=== PATIENT | female | born 1985 | race Caucasian/White ===

== ENCOUNTER 2023-12-21 09:12 | Emergency (ER) | payer MEDICARE, OTHER ==
--- NOTE | 2023-12-21 09:18 | ED Physician Documentation ---
PD HPI LOWER EXT INJURY - Stated complaint Stated Complaint: R ANKLE INJ - History obtained from History obtained from: Patient, EMS - History of Present Illness PD HPI LOW EXT INJURY LOCATION: Right, Ankle Type of injury: Twist (stepped down about 6 inch area and ankle twisted as landed. Pin with walking.) Timing - onset: Today Timing - details: Abrupt onset, Still present Worsened by: Moving, Palpating Associated symptoms: Swelling. No: Weakness, Numbness Similar symptoms before: Has not had sx before PD PAST MEDICAL HISTORY - Past Medical History Cardiovascular: None - Present Medications Home Medications: Ambulatory Orders Medication Instructions Recorded Confirmed No Known Home Medications 12/21/23 12/21/23 - Allergies Allergies/Adverse Reactions: Allergies Allergy/AdvReac Type Severity Reaction Status Date / Time No Known Drug Allergies Allergy Unverified 12/21/23 09:26 PD ED PE NORMAL - Vitals Vital signs reviewed: Yes - General General: Alert and oriented X 3, No acute distress, Well developed/nourished - Derm Derm: Normal color, Warm and dry - Extremities Extremities: Other (right ankle with lateral swelling and tenderness. Medially minimal to no tenderness. Achilles firm and intact. ) - Neuro Neuro: No motor deficit, No sensory deficit Results - Rads (name of study) right ankle Relevant Findings:: Prelim report reviewed, EMP independent interpretation of test (no fractures) PD Medical Decision Making - ED course Complexity details: considered differential (sprain vs fracturea and the xray showed no fracture. Will give aircast and crutches. ), d/w patient Departure - Departure Disposition: 01 Home, Self Care Clinical Impression: Ankle sprain Condition: Stable Record reviewed to determine appropriate education?: Yes Instructions: ED Sprain Ankle Comments: Your x-ray does not show any fractures. Obviously there is still injury to the ankle and some early bruising showing up would be suggestive of some torn ligame nts or muscle attachments. These can be several weeks and healing. Use the ankle brace to support the ankle for the duration of healing which may be even 3 to 4 weeks. Crutches initially for nonweightbearing or partial weightbearing as tolerated based on discomfort. Progress weightbearing as able. Continue with the splints though. You initially may prefer the splint on most of the time. As it starts getting feeling better you can have it off when rested and sleeping etc. Ice elevate and rested often today to help with swelling. Tylenol and/or ibuprofen regularly to help with pain. Follow-up with your primary care for recheck in about 1-1/2 weeks to see how well it is improving at that time and if the current treatment is adequate. Call for an appointment. Forms: PCP List Discharge Date/Time: 12/21/23 10:53
--- NOTE | 2023-12-21 09:54 | XRAY Report ---
PROCEDURE: Ankle 3+V RT INDICATIONS: ankle twist and pain TECHNIQUE: 3 views of the ankle were acquired. COMPARISON: None. FINDINGS: Bones: No fractures or dislocations. Ankle mortise is normally aligned. No suspicious bony lesions . Soft tissues: Lateral malleolar edema.. Achilles tendon appears normal. IMPRESSION: No visualized acute fracture or dislocation. However, occult injury cannot be excluded. Recommend gideon rt interval imaging follow-up in 7-10 days as clinically indicated for additional evaluation. Reviewed by: Kaci Li MD on 12/21/2023 9:53 AM PDT Approved by: Kaci Li MD on 12/21/2023 9:53 AM PDT Station ID: [id number]
[2023-12-21 11:01] VITALS: BP 120/98; O2SAT 98
== END 2023-12-21 10:53 | disposition home or self-care (01) ==
LOC: EDUNIT# → EDBD → ED 09:12
DX: S93.401A Sprain of unspecified ligament of right ankle, initial encounter (principal); X50.1XXA Overexertion from prolonged static or awkward postures, initial encounter
CPT/HCPCS: 99283